=== PATIENT | female | born 1960 | race African-American/Black ===

== ENCOUNTER 2020-02-28 10:21 | Emergency (ER) | payer BC, OTHER ==
[2020-02-28 20:17] LABS: SARS-CoV-2 MS2 Positive; SARS-CoV-2 N Gene Negative; SARS-CoV-2 S Gene Negative; SARS-CoV-2 by NAA Not Detected (NotDetected); SARS-CoV-2 orf1ab Negative
== END 2020-02-28 10:44 | disposition home or self-care (01) ==
LOC: ERS 10:21
DX: Z20.828 Contact with and (suspected) exposure to other viral communicable diseases (principal)
CPT/HCPCS: 87635; 99283; U0003

== ENCOUNTER 2024-04-09 11:18 | Outpatient (CLI) | payer OTHER | END 2024-04-09 11:19 | disposition home or self-care (01) | LOC: BICRAD 11:18 | PROVIDERS: ATTEND Nurse Practitioner Family | DX: M25.532 Pain in left wrist (principal) ==